=== PATIENT | female | born 1995 | race Caucasian/White ===

== ENCOUNTER → 2021-04-01 | Outpatient (CLI) | payer OTHER ==
[2021-04-01 16:01] VITALS: BP 118/82; PULSE 99; RESP 12; TEMP 97.7
--- NOTE | 2021-04-01 16:10 | P.GSHP ---
History of Present Illness H&P Date: 04/01/21 Chief Complaint: Family history of breast cancer Sherri is a 25-year-old white female who presents for counseling secondary to strong family history of breast cancer. Her mother is of breast cancer at the age of 53, her maternal grandmother has had bilateral breast cancer. She is uncertain as to whether genetic testing was done however she believes her mother did have genetic testing which was negative. She has not noted any lumps masses or nodules in her own breast. Patient just started menstrual period last pm. Breast do not change with her period. Caffeine: occasional nicotine: none chocolate: twice/week Family history: Mother: of breast cancer 53 Maternal grandmother: Bilateral breast cancer Maternal great grandmother breast cancer paternal grandmother: colon cancer Hormonal history: Menarche: 14 G0 not sexually active periods regular BCP: none Surgical history: none Medical History: none Social History: nicotine: none alcohol: twice a month drugs: none - Constitutional Constitutional: Denies chills, Denies fever - EENT Eyes: denies blurred vision, denies pain Ears: deny: decreased hearing, tinnitus Ears, nose, mouth and throat: Denies headache, Denies sore throat - Breasts Breasts: bilateral: as per HPI - Cardiovascular Cardiovascular: Denies chest pain, Denies shortness of breath - Respiratory Respiratory: Denies cough, Denies 7 - Gastrointestinal Gastrointestinal: Denies abdominal pain, Denies diarrhea, Denies nausea, Denies vomiting - Genitourinary (Female) Genitourinary: Denies dysuria, Denies hematuria - Menstruation Menstruation: Reports period normal - Musculoskeletal Musculoskeletal: Denies myalgias - Integumentary Integumentary: Denies pruritus, Denies rash - Neurological Neurological: Denies numbness, Denies weakness - Psychiatric Psychiatric: Denies anxiety, Denies depression - Endocrine Endocrine: Denies fatigue, Denies weight change - Hematologic/Lymphatic Comment: none - Allergic/Immunologic Allergic/Immunologic: Reports as per HPI Medications and Allergies Allergies Allergy/AdvReac Type Severity Reaction Status Date / Time nut - unspecified Allergy Anaphylaxis Unverified 04/01/21 15:53 sulfamethoxazole Allergy Rash/Hives Unverified 04/01/21 15:53 [From Bactrim] trimethoprim [From Bactrim] Allergy Rash/Hives Unverified 04/01/21 15:53 Surgical - Exam BMI 22.7 - General well developed, well nourished, no distress - Eyes normal ocular movement - ENT no hearing loss, no congestion - Neck no masses, trachea midline - Respiratory normal respiratory effort, clear to auscultation - Cardiovascular Rhythm: regular Heart Sounds: normal: S1, S2 - Abdomen Abdomen: soft - Integumentary normal turgor - Neurologic no disoriented, no combative - Musculoskeletal normal gait - Psychiatric oriented to time, oriented to person, oriented to place, speech is normal, memory intact Breast Exam: Bra: 34DD inspection: Bilateral grade 2 ptosis; folliculitis bilateral periareolar Palpation: Right breast: Multi-positional exam fibrocystic changes no dominant masses or nodules of concern Right axilla: No adenopathy of concern Left breast: Increased nodularity at 12 o'clock position dense breast, fibrocystic changes Left axilla: No adenopathy of concern Results No radiographic studies performed Assessment and Plan Assessment: Impression: Strong family history of breast cancer Dense fibrocystic breast Increased nodularity left breast 12 o'clock position Plan: Bilateral breast MRI Genetic counseling Bilateral breast ultrasound Cc: Ira Cabrera
== END ==
LOC: WWCWWP 15:49
PROVIDERS: ATTEND Surgery
DX: N60.11 Diffuse cystic mastopathy of right breast (principal); N63.22 Unspecified lump in the left breast, upper inner quadrant; Z88.2 Allergy status to sulfonamides; Z91.018 Allergy to other foods; Z80.3 Family history of malignant neoplasm of breast

== ENCOUNTER → 2021-04-06 | Outpatient (CLI) | payer OTHER ==
--- NOTE | 2021-04-07 08:16 | USB ---
Reason for exam: clinical finding. Physical Findings: Breast exam performed by Dr. Becker. US Breast BILAT Right complete breast ultrasound includes all four quadrants, the retroareolar region and axilla. Finding demonstrates a 1.2 x 0.9 x 0.6cm cystic lesion at 10 o'clock. Left complete breast ultrasound includes all four quadrants, the retroareolar region and axilla. Finding demonstrates a 0.4 x 0.4 x 0.3cm cystic lesion at 1 o'clock. These results were verbally communicated with the patient and result sheet given to the patient on 04/07/21. ASSESSMENT: Benign, BI-RAD 2 RECOMMENDATION: Clinical management of both breasts. Manage patient on a clinical basis.
== END | disposition home or self-care (01) ==
LOC: RADUSWWP 14:59
PROVIDERS: ATTEND Surgery
DX: N64.89 Other specified disorders of breast (principal)

== ENCOUNTER → 2023-07-13 | Outpatient (CLI) | payer BC ==
[2023-07-13 14:53] VITALS: BP 118/76; PULSE 61; RESP 17; TEMP 97.8
--- NOTE | 2023-07-13 14:55 | P.PN ---
Subjective Progress Note Date: 07/13/23 Family history of breast cancer Sherri is a 27-year-old white female who presented for counseling secondary to strong family history of breast cancer. Her mother is of breast cancer at the age of 53, her maternal grandmother has had bilateral breast cancer. She is uncertain as to whether genetic testing was done however she believes her mother did have genetic testing which was negative. She has not noted any lumps masses or nodules in her own breast. Breast do not change with her period. Negative no genetic variants were discovered and 83 genes tested Oz-Liliya model 38.1% lifetime risk to develop breast cancer bilateral breast ultrsound 04-06-21 BIRAD 2 Caffeine: occasional nicotine: none chocolate: twice/week BCP: none hormones: none Family history: Mother: of breast cancer 53 Maternal grandmother: Bilateral breast cancer Maternal great grandmother breast cancer paternal grandmother: colon cancer Hormonal history: Menarche: 14 G0 not sexually active periods regular BCP: none Surgical history: none Medical History: none Social History: nicotine: none alcohol: twice a month drugs: none - Constitutional Constitutional: Denies chills, Denies fever - EENT Eyes: denies blurred vision, denies pain Ears: deny: decreased hearing, tinnitus Ears, nose, mouth and throat: Denies headache, Denies sore throat - Breasts Breasts: bilateral: as per HPI - Cardiovascular Cardiovascular: Denies chest pain, Denies shortness of breath - Respiratory Respiratory: Denies cough - Gastrointestinal Gastrointestinal: Denies abdominal pain, Denies diarrhea, Denies nausea, Denies vomiting - Genitourinary (Female) Genitourinary: Denies dysuria, Denies hematuria - Menstruation Menstruation: Reports period normal - Musculoskeletal Musculoskeletal: Denies myalgias - Integumentary Integumentary: Denies pruritus, Denies rash - Neurological Neurological: Denies numbness, Denies weakness - Psychiatric Psychiatric: Denies anxiety, Denies depression - Endocrine Endocrine: Denies fatigue, Denies weight change - Hematologic/Lymphatic Comment: none - Allergic/Immunologic Allergic/Immunologic: Reports as per HPI Medications and Allergies Allergies Allergy/AdvReac Type Severity Reaction Status Date / Time nut - unspecified Allergy Anaphylaxis Unverified 04/01/21 15:53 sulfamethoxazole Allergy Rash/Hives Unverified 04/01/21 15:53 [From Bactrim] trimethoprim [From Bactrim] Allergy Rash/Hives Unverified 04/01/21 15:53 Objective - Constitutional General appearance: Present: cooperative - EENT Eyes: Present: EOMI ENT: Present: hearing grossly normal - Neck Neck: Present: normal ROM - Respiratory Respiratory: bilateral: CTA - Cardiovascular Rhythm: regular Heart sounds: normal: S1, S2 - Integumentary Integumentary: Present: normal turgor - Musculoskeletal Musculoskeletal: Present: gait normal - Psychiatric Psychiatric: Present: A&O x's 3, appropriate affect, intact judgment & insight - Additional findings Additional findings: Breast Exam: Bra: 34DD inspection: Bilateral grade 2 ptosis; folliculitis bilateral periareolar, the anterior parts of both breast Palpation: Right breast: Multi-positional exam fibrocystic changes no dominant masses or nodules of concern, breast Right axilla: No adenopathy of concern Left breast: Increased nodularity at 12 o'clock position dense breast, fibrocystic changes, dense breast Left axilla: No adenopathy of concern Assessment and Plan Assessment: Impression: Strong family history of breast cancer Dense fibrocystic breast Increased nodularity left breast 12 o'clock position Plan: Bilateral breast MRI Genetic counseling/ done negative breast MRI Cc: Ira Cabrera
== END ==
LOC: WWCWWP 13:50
PROVIDERS: ATTEND Surgery
DX: N60.12 Diffuse cystic mastopathy of left breast (principal); N63.25 Unspecified lump in the left breast, overlapping quadrants; Z80.3 Family history of malignant neoplasm of breast; Z88.1 Allergy status to other antibiotic agents; Z88.2 Allergy status to sulfonamides; Z91.018 Allergy to other foods

== ENCOUNTER → 2023-07-31 | Outpatient (CLI) | payer BC ==
--- NOTE | 2023-08-01 14:50 | BMR ---
EXAM DATE: 08/01/2023 EXAM DESCRIPTION: MRI-Breast Bilat (W/WO Contrast) INDICATION: Strong family history of breast cancer. Dense breast parenchyma. Surveillance. COMPARISON: Right breast ultrasound examination. CONTRAST: 6.0 cc Gadavist contrast material. TECHNIQUE: Multi sequence multiplanar MR imaging of the breasts was obtained. Subsequently, after the uneventful intravenous administration of Gadavist contrast material, 6 dynamic sequences were then obtained. Post processing was performed utilizing a [employer] CAD workstation. FINDINGS: The breasts are composed of heterogeneous fibroglandular tissue. There is mild background parenchymal enhancement identified. Non enlarged axillary lymph nodes are present. There is no axillary or internal mammary lymphadenopathy. No focal skin thickening or nipple retraction. No adenopathy in the visualized mediastinum. The bone marrow signal intensity is unremarkable. T2 weighted images demonstrated several T2 bright lesions in both breasts the dominant 1 in the posterolateral portion of left breast measures 2.0 x 1.1 cm (401 image 28). Post contrast images demonstrated no abnormal enhancement in either breast to suggest malignancy. Several foci of progressive enhancement in both breasts likely related to benign background parenchyma. There is no abnormal signal or enhancement in the chest wall or subcutaneous tissue. IMPRESSION: 1. No MR evidence of malignancy in either breast. 2. No axillary or internal mammary lymphadenopathy. Final assessment: BI-RADS category 2: Benign findings MTDD
== END | disposition home or self-care (01) ==
LOC: RADMRIMAIN 17:31
PROVIDERS: ATTEND Surgery
DX: R92.8 Other abnormal and inconclusive findings on diagnostic imaging of breast (principal); R92.30 Dense breasts, unspecified; Z80.3 Family history of malignant neoplasm of breast
CPT/HCPCS: 77049; A9585